=== PATIENT | female | born 1980 | race Caucasian/White ===

== ENCOUNTER 2017-06-22 05:45 | Day surgery (SDC) | payer OTHER | END 2017-06-22 12:00 | disposition home or self-care (01) | LOC: CIR.AMB 05:45 | DX: N84.0 Polyp of corpus uteri (principal) ==

== ENCOUNTER 2020-11-24 08:36 | Outpatient (CLI) | payer OTHER | END 2020-11-24 08:46 | disposition home or self-care (01) | LOC: RAD 08:36 | DX: S93.611A Sprain of tarsal ligament of right foot, initial encounter (principal) ==

== ENCOUNTER 2021-01-13 08:00 | Outpatient (CLI) | payer OTHER | END 2021-01-13 08:30 | disposition home or self-care (01) | LOC: PPH VACUNA 08:00 | PROVIDERS: ATTEND Emergency Medicine Pediatric Emergency Medicine | DX: Z23 Encounter for immunization (principal) ==

== ENCOUNTER 2021-11-18 12:42 | Outpatient (CLI) | payer OTHER | END 2021-11-18 12:44 | disposition home or self-care (01) | LOC: MAMO-SONO 12:42 | PROVIDERS: ATTEND Obstetrics & Gynecology Maternal & Fetal Medicine | DX: N64.4 Mastodynia (principal); N63.0 Unspecified lump in unspecified breast; N60.11 Diffuse cystic mastopathy of right breast; Z12.31 Encounter for screening mammogram for malignant neoplasm of breast ==

== ENCOUNTER 2022-06-30 05:58 | Day surgery (SDC) | payer OTHER ==
[~2022-06-30] VITALS: Ht 160 cm; Wt 63.5 kg
== END 2022-06-30 12:25 | disposition home or self-care (01) ==
LOC: CIR.AMB 05:58
PROVIDERS: ATTEND Obstetrics & Gynecology Maternal & Fetal Medicine
DX: N84.1 Polyp of cervix uteri (principal); N84.0 Polyp of corpus uteri; Z20.822 Contact with and (suspected) exposure to COVID-19

== ENCOUNTER 2024-04-16 10:24 | Outpatient (CLI) | payer OTHER | END 2024-04-16 10:27 | disposition home or self-care (01) | LOC: MAMO-SONO 10:24 | PROVIDERS: ATTEND Obstetrics & Gynecology Maternal & Fetal Medicine | DX: N63 Unspecified lump in breast (principal); Z12.31 Encounter for screening mammogram for malignant neoplasm of breast; N64.4 Mastodynia; N60.11 Diffuse cystic mastopathy of right breast ==

== ENCOUNTER 2024-12-06 08:40 | Outpatient (CLI) | payer OTHER | END 2024-12-06 08:49 | disposition home or self-care (01) | LOC: SONOGRAMA 08:40 | PROVIDERS: ATTEND Obstetrics & Gynecology Maternal & Fetal Medicine | DX: N84.0 Polyp of corpus uteri (principal) ==

== ENCOUNTER 2024-12-26 06:00 | Day surgery (SDC) | payer OTHER ==
[2024-12-18 10:59] LABS: BASO % 1.1 % (0.1-1.2); EOS # 0.15 (0.04-0.54); EOS % 2.3 % (0.7-7.0); LYMPH # 1.48 (1.18-3.74); LYMPH % 22.5 % (19.3-53.1); MEAN PLATELET VOLUME 8.90 fl (9.4-12.4); MONO # 0.37 (0.24-0.82); MONO % 5.6 % (4.7-12.5); NEUT # 4.50 (1.56-6.13); NEUT % 68.2 % (34.0-71.1); RED CELL DISTRIBUTION WIDTH 12.5 % (11.6-14.4)
[2024-12-18 11:07] VITALS: BP 98/59
[2024-12-18 11:19] LABS: INR 1.02
[2024-12-18 11:34] LABS: ALT/SGPT 23.0 U/L (12-78); AST/SGOT 17.0 U/L (15-37); BILIRUBIN TOTAL 0.44 mg/dL (0.3-1.2); BUN CREA RATIO 19.0 (7.0-25.0); CREATININE SERUM 0.69 mg/dL (0.55-1.02); GFR 92.42; GLOBULINA 3.0 G/DL (2.4-3.5); GLUCOSE FASTING 103.0 mg/dL (65-100); OSMOLALITY SERUM 282.0 MOSM/KG (275-295)
[~2024-12-26] VITALS: Ht 157.5 cm; Wt 60.3 kg
[2024-12-26] MEDS ORDERED: POVIDONE-IODINE 118 ML BOTT TOP ONE ×2 (08:00→08:38)
== END 2024-12-26 12:20 | disposition home or self-care (01) ==
LOC: CIR.AMB 06:00
PROVIDERS: ATTEND Obstetrics & Gynecology Maternal & Fetal Medicine
DX: N84.0 Polyp of corpus uteri (principal)